=== PATIENT | female | born 1980 ===

== ENCOUNTER 2024-05-09 20:00 | Outpatient (REF) | payer BC, SELFPAY ==
[2024-05-10 22:37] LABS: BUN Creatinine Ratio 9.5; Calcium 9.1 mg/dL (8.5-10.1); Chloride 105 mmol/L (98-107); Estimated GFR (African America >60 (>=60 mL/min/1.73m^2); Estimated GFR (Non-African Ame >60 (>=60 mL/min/1.73m^2); Glucose 51 mg/dL (74-106); Sodium 138 mmol/L (136-145)
== END 2024-05-09 20:01 | disposition home or self-care (01) ==
LOC: LAB 20:00
PROVIDERS: PCP Family Medicine
DX: E86.0 Dehydration (principal)
CPT/HCPCS: 36415; 80048